=== PATIENT | male | born 1940 | race Caucasian/White ===

== ENCOUNTER 2017-11-05 01:16 | Inpatient (IN) | payer OTHER, BC ==
[~2017-11-05] VITALS: Ht 162.6 cm; Wt 78.9 kg
[2017-11-05 02:23] LABS: HEMATOCRIT 41.6 % (38.0-50.0); HEMOGLOBIN 14.5 G/DL (12.5-16.6); MCH 31.3 PG (29.0-34.0); MCHC 34.9 G/DL (30.0-36.0); MCV 89.7 FL (86-99); PLATELET COUNT 192 K/uL (156-360); RBC DIS.WIDTH-CV 13.2 % (11.8-14.6); RBC DIS.WIDTH-SD 42.8 % (39-53); RED BLOOD COUNT 4.64 M/uL (4.00-5.50); WHITE BLOOD COUNT 18.7 K/uL (4.1-10.2)
[2017-11-05 02:29] LABS: INTER. NORMALIZED RATIO 1.1
[2017-11-05 02:31] LABS: PTT 26.3 SEC (25-37)
[2017-11-05 02:34] LABS: CHLORIDE 105 mEq/L (99-109); SODIUM 137 mEq/L (136-147)
[2017-11-05 02:37] LABS: GLUCOSE 110 mg/dL (70-99); TOTAL PROTEIN 6.2 g/dL (6.4-8.3)
[2017-11-05 02:39] LABS: TOTAL BILIRUBIN 0.8 mg/dL (0.0-1.0)
[2017-11-05 02:40] LABS: ALKALINE PHOSPHATASE 111 IU/L (3-129); CREATININE 0.8 mg/dL (0.6-1.3); GFR ESTIMATE (CALCULATED) > 59 mL/min/ (58.99-99999)
[2017-11-05 02:41] LABS: UREA NITROGEN (BUN) 20 mg/dL (9-23)
[2017-11-05 02:42] LABS: AST (GOT) 20 IU/L (2-34)
[2017-11-05 02:43] LABS: ALT (GPT) 19 IU/L (3-49); TROP-I INTERPRETATION NEGATIVE; TROPONIN-I < 0.01 ng/mL (0.0-0.30)
[2017-11-05 02:44] LABS: LIPASE 10 U/L (1.0-51.0)
[2017-11-05 04:17] LABS: APPEARANCE CLEAR ((CLEAR)); BILIRUBIN NEGATIVE; BLOOD SMALL; COLOR STRAW ((YELLOW)); GLUCOSE (STRIP) NEGATIVE; KETONES NEGATIVE; LEUKOCYTES LARGE; NITRITE NEGATIVE; PROTEIN (STRIP) NEGATIVE; SPECIFIC GRAVITY 1.038 (1.000-1.030); UROBILINOGEN 0.2 MG/DL (0.2-1.0)
[2017-11-05 04:20] LABS: BACTERIA NONE SEEN /HPF; EPITHELIAL CELLS RARE /HPF; MUCUS NONE SEEN /LPF; UCUL ADDED? YES
[2017-11-05 06:25] VITALS: BP 99/67
[2017-11-05] MEDS ORDERED: ATORVASTATIN CA40 MG PO (07:05)
[2017-11-05] MEDS ORDERED: MYRBETRIQ50 MG PO (07:05)
[2017-11-05] MEDS ORDERED: ZANTAC150 MG PO (07:05)
[2017-11-05] MEDS ORDERED: NAMENDA5 MG PO (07:06)
[2017-11-05] MEDS ORDERED: COSOPT EYE DROP10 ML RIGHT EYE (07:07)
[2017-11-05] MEDS ORDERED: ADULT ASPIRIN81 MG PO (07:07)
[2017-11-05] MEDS ORDERED: VITAMIN D33000 UNIT PO (07:10)
[2017-11-05] MEDS ORDERED: WELLBUTRIN XL300 MG PO (07:10)
[2017-11-05] MEDS ORDERED: WELLBUTRIN XL150 MG PO (07:10)
[2017-11-05] MEDS ORDERED: VITAMIN B12-FO1 EACH PO (07:10)
[2017-11-05 07:34] VITALS: BP 103/65
[2017-11-05 11:41] VITALS: BP 118/65
[2017-11-05 16:00] VITALS: BP 105/67
[2017-11-05 19:51] VITALS: BP 98/53
[2017-11-05 23:17] VITALS: BP 104/59
[2017-11-06 04:38] VITALS: BP 103/58
[2017-11-06 06:01] LABS: BASOPHIL (%) 0.4 % (0-1); BASOPHIL COUNT 0.1 K/uL (0-0.1); EOSINOPHIL (%) 0.8 % (0-5); EOSINOPHIL COUNT 0.1 K/uL (0-0.3); HEMOGLOBIN 13.1 G/DL (12.5-16.6); IMMATURE GRANULOCYTE (%) 0.6 % (0.0-0.7); LYMPHOCYTE (%) 7.3 % (15-42); LYMPHOCYTE COUNT 1.3 K/uL (1.0-2.8); MCH 31.2 PG (29.0-34.0); MCHC 34.5 G/DL (30.0-36.0); MCV 90.5 FL (86-99); MONOCYTE (%) 10.1 % (3-12); MONOCYTE COUNT 1.8 K/uL (0-0.8); NEUTROPHIL (%) 80.8 % (45-76); NEUTROPHIL COUNT 14.4 K/uL (1.8-6.4); PLATELET COUNT 180 K/uL (156-360); RBC DIS.WIDTH-CV 13.2 % (11.8-14.6); RBC DIS.WIDTH-SD 43.8 % (39-53); WHITE BLOOD COUNT 17.8 K/uL (4.1-10.2)
[2017-11-06 06:25] LABS: CHLORIDE 111 MEQ/L (99-109); CREATININE 0.6 MG/DL (0.6-1.3); GFR ESTIMATE (CALCULATED) > 59 mL/min/ (58.99-99999); GLUCOSE 119 mg/dL (70-99); POTASSIUM 3.7 MEQ/L (3.7-5.4); SODIUM 142 MEQ/L (136-147); UREA NITROGEN (BUN) 10 mg/dL (9-23)
[2017-11-06 07:46] VITALS: BP 116/74
[2017-11-06 15:43] VITALS: BP 106/65
[2017-11-07 00:01] VITALS: BP 107/68
[2017-11-07 06:35] LABS: HEMATOCRIT 38.8 % (38.0-50.0); HEMOGLOBIN 13.4 G/DL (12.5-16.6); MCH 31.1 PG (29.0-34.0); MCHC 34.5 G/DL (30.0-36.0); PLATELET COUNT 189 K/uL (156-360); RBC DIS.WIDTH-SD 43.1 % (39-53); RED BLOOD COUNT 4.31 M/uL (4.00-5.50); WHITE BLOOD COUNT 14.4 K/uL (4.1-10.2)
[2017-11-07 08:07] VITALS: BP 111/72
[2017-11-07 17:15] VITALS: BP 106/67
[2017-11-07 23:33] VITALS: BP 108/68
[2017-11-08 07:18] VITALS: BP 121/67
[2017-11-08 08:17] LABS: HEMATOCRIT 39.3 % (38.0-50.0); HEMOGLOBIN 13.7 G/DL (12.5-16.6); MCH 31.1 PG (29.0-34.0); MCHC 34.9 G/DL (30.0-36.0); MCV 89.3 FL (86-99); PLATELET COUNT 211 K/uL (156-360); RBC DIS.WIDTH-CV 13.2 % (11.8-14.6); RBC DIS.WIDTH-SD 43.3 % (39-53); WHITE BLOOD COUNT 10.3 K/uL (4.1-10.2)
== END 2017-11-08 14:09 | DRG 872 ==
LOC: EME → EDBD 01:16 → EDSEX 01:16 → EME 01:16 → EDOF 05:19 → 5SOUTH 05:19 → ENRESERV 05:21 → 5SOUTH 06:03 → ENPENDDIS 11-08 14:00 → 5SOUTH 11-08 14:09
PROVIDERS: Emergency Medicine; Hospitalist; Physician Assistant
DX: A41.9 Sepsis, unspecified organism (principal); N39.0 Urinary tract infection, site not specified; B96.20 Unspecified Escherichia coli [E. coli] as the cause of diseases classified elsewhere; I95.9 Hypotension, unspecified; E87.2 Acidosis; F01.50 Vascular dementia, unspecified severity, without behavioral disturbance, psychotic disturbance, mood disturbance, and anxiety; I44.0 Atrioventricular block, first degree; I25.10 Atherosclerotic heart disease of native coronary artery without angina pectoris; E78.5 Hyperlipidemia, unspecified; R73.03 Prediabetes; K21.9 Gastro-esophageal reflux disease without esophagitis; K59.00 Constipation, unspecified; N32.81 Overactive bladder; H40.9 Unspecified glaucoma; R26.9 Unspecified abnormalities of gait and mobility; F32.9 Major depressive disorder, single episode, unspecified; Z87.891 Personal history of nicotine dependence; Z96.653 Presence of artificial knee joint, bilateral
CPT/HCPCS: 71046; 74177; 80048; 80053; 81003; 83605; 83690; 84484; 85025; 85027; 85610; 85730; 87040; 87077; 87086; 87186; 93005; 94799; 99281; 99285; J0696; J1644; J2405; J7030